=== PATIENT | male | born 1965 | race Caucasian/White ===

== ENCOUNTER 2021-10-05 20:50 | Observation (INO) | payer OTHER ==
[~2021-10-05] VITALS: Ht 190.5 cm; Wt 143.6 kg
--- NOTE | 2021-10-05 21:02 | ED Respiratory ---
General Stated Complaint: SOB Source: patient Exam Limitations: no limitations (SHELLEY MIRAMONTES APRN) History of Present Illness Date Seen by Provider: Oct 05, 2021 Time Seen by Provider: 20:49 Initial Comments This is a 55-year-old male with a history of hypertension, hyperlipidemia, and 2 coronary artery stents who presented to the ER via [facility] with complaints of shortness of air and chest pain. 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 States that he has been having increasing shortness of air over the past several months. Today he developed "heaviness" in his chest that was persistent with no alleviating or aggravating factors. States that 2 years ago he had chest pain and ended up requiring 2 coronary artery stents. The chest pain feels different today compared to his prior episode 2 years ago. He does take ASA 81mg daily and Prasugrel. He does not have a diagnosis of COPD, however he does admit to smokin g 1 to 2 packs of cigarettes per day for the last 45 years. He has follow up for an echocardiogram with his merchandise stocker next week and is scheduled for PFT next month. Denies fever, chills, cough, nausea, vomiting, abdominal pain. (SHELLEY MIRAMONTES APRN) Allergies and Home Medications Allergies Uncoded Allergies: PENICILLIN (Allergy, Unknown, 10/05/21) Patient Home Medication List Home Medication List Reviewed: Yes (SHELLEY MIRAMONTES APRN) Review of Systems Review of Systems Constitutional: no symptoms reported EENTM: no symptoms reported Respiratory: see HPI; No hemoptysis; orthopnea Cardiovascular: see HPI Gastrointestinal: no symptoms reported Genitourinary: no symptoms reported Musculoskeletal: no symptoms reported Skin: no symptoms reported Psychiatric/Neurological: No Symptoms Reported Hematologic/Lymphatic: No Symptoms Reported Immunological/Allergic: no symptoms reported (SHELLEY MIRAMONTES APRN) Physical Exam Vital Signs - First Documented 10/05/21 20:52 Temp 36.5 Pulse 89 Resp 26 B/P (MAP) 137/90 (106) Pulse Ox 94 O2 Delivery Nasal Cannula O2 Flow Rate 2.00 (ARPITA MEDINA MD) Capillary Refill : (SHELLEY MIRAMONTES APRN) Height: '" Weight: lbs. oz. kg; BMI Method: General Appearance: WD/WN, no apparent distress Eyes: Right Eye Normal Inspection, Right Eye PERRL, Right Eye EOMI HEENT: PERRL/EOMI, normal ENT inspection, pharynx normal Neck: full range of motion, supple, normal inspection Respiratory: no respiratory distress, decreased breath sounds; No accessory muscle use; other (tripod positioning ) Cardiovascular: regular rate, rhythm, no gallop Gastrointestinal: normal bowel sounds, non tender, soft Extremities: normal range of motion, non-tender, normal inspection, no pedal edema Neurologic/Psychiatric: no motor/sensory deficits, alert, normal mood/affect, oriented x 3 Skin: normal color, warm/dry (SHELLEY MIRAMONTES APRN) Progress/Results/Core Measures Suspected Sepsis SIRS Temperature: Pulse: Respiratory Rate: Laboratory Tests 10/05/21 21:09: White Blood Count 11.8H Blood Pressure / Mean: Laboratory Tests 10/05/21 21:09: Creatinine 0.75, INR Comment 1.0, Platelet Count 207, Total Bilirubin 0.9 (SHELLEY MIRAMONTES APRN) Results/Orders Lab Results Laboratory Tests Test 10/05/21 21:09 Range/Units White Blood Count 11.8 H 4.3-11.0 10^3/uL Red Blood Count 4.67 4.30-5.52 10^6/uL Hemoglobin 13.9 13.3-17.7 g/dL Hematocrit 42 40-54 % Mean Corpuscular Volume 90 80-99 fL Mean Corpuscular Hemoglobin 30 25-34 pg Mean Corpuscular Hemoglobin Concent 33 32-36 g/dL Red Cell Distribution Width 13.4 10.0-14.5 % Platelet Count 207 130-400 10^3/uL Mean Platelet Volume 9.7 9.0-12.2 fL Immature Granulocyte % (Auto) 0 % Neutrophils (%) (Auto) 80 H 42-75 % Lymphocytes (%) (Auto) 9 L 12-44 % Monocytes (%) (Auto) 7 0-12 % Eosinophils (%) (Auto) 4 0-10 % Basophils (%) (Auto) 0 0-10 % Neutrophils # (Auto) 9.4 H 1.8-7.8 10^3/uL Lymphocytes # (Auto) 1.1 1.0-4.0 10^3/uL Monocytes # (Auto) 0.8 0.0-1.0 10^3/uL Eosinophils # (Auto) 0.4 H 0.0-0.3 10^3/uL Basophils # (Auto) 0.0 0.0-0.1 10^3/uL Immature Granulocyte # (Auto) 0.0 0.0-0.1 10^3/uL Prothrombin Time 13.6 12.2-14.7 SEC INR Comment 1.0 0.8-1.4 Activated Partial Thromboplast Time 26 24-35 SEC D-Dimer 0.51 H 0.00-0.49 UG/ML Blood Gas Puncture Site L RAD Blood Gas Patient Temperature 36.5 Arterial Blood pH 7.39 7.37-7.43 Arterial Blood Partial Pressure CO2 43 35-45 MMHG Arterial Blood Partial Pressure O2 64 L 79-93 MMHG Arterial Blood HCO3 25 23-27 MMOL/L Arterial Blood Total CO2 26.6 21.0-31.0 MMOL/L Arterial Blood Oxygen Saturation 94 94-100 % Arterial Blood Base Excess 0.7 -2.5-2.5 MMOL/L Mario Alberto Test YES-POS Blood Gas Ventilator Setting NO Blood Gas Inspired Oxygen 4L Sodium Level 141 135-145 MMOL/L Potassium Level 3.6 3.6-5.0 MMOL/L Chloride Level 105 98-107 MMOL/L Carbon Dioxide Level 22 21-32 MMOL/L Anion Gap 14 5-14 MMOL/L Blood Urea Nitrogen 12 7-18 MG/DL Creatinine 0.75 0.60-1.30 MG/DL Estimat Glomerular Filtration Rate 107 BUN/Creatinine Ratio 16 Glucose Level 108 H 70-105 MG/DL Calcium Level 9.0 8.5-10.1 MG/DL Corrected Calcium 8.8 8.5-10.1 MG/DL Magnesium Level 1.9 1.6-2.4 MG/DL Total Bilirubin 0.9 0.1-1.0 MG/DL Aspartate Amino Transf (AST/SGOT) 20 5-34 U/L Alanine Aminotransferase (ALT/SGPT) 36 0-55 U/L Alkaline Phosphatase 121 40-136 U/L Myoglobin 90.1 10.0-92.0 NG/ML Troponin I < 0.028 <0.028 NG/ML B-Type Natriuretic Peptide 53.3 <100.0 PG/ML Total Protein 6.8 6.4-8.2 GM/DL Albumin 4.2 3.2-4.5 GM/DL Influenza Type A (RT-PCR) Not Detected Not Detecte Influenza Type B (RT-PCR) Not Detected Not Detecte SARS-CoV-2 RNA (RT-PCR) Not Detected Not Detecte (ARPITA MEDINA MD) Medications Given in ED Current Medications Medications Dose Ordered Sig/Justin Route Start Time Stop Time Status Last Admin Dose Admin Albuterol/ Ipratropium 3 ml STK-MED ONCE .ROUTE 10/05/21 22:05 10/05/21 22:07 DC 10/05/21 22:26 3 ML Nitroglycerin 1 BOTTLE ONCE ONCE SL 10/05/21 22:15 10/05/21 22:16 DC 10/05/21 22:09 0.4 MG (ARPITA MEDINA MD) Vital Signs/I&O 10/05/21 10/05/21 20:52 20:52 Temp 36.5 Pulse 89 Resp 26 B/P (MAP) 137/90 (106) Pulse Ox 94 94 O2 Delivery Nasal Cannula Nasal Cannula O2 Flow Rate 2.00 (ARPITA MEDINA MD) Vital Signs/I&O Capillary Refill : (SHELLEY MIRAMONTES APRN) Progress Note : Progress Note Upon arrival he is in no acute distress. He is on 2 L of oxygen via nasal cannula per EMS. His O2 sat is 91% at this time. He is sitting up on the side of the bed in a tripod position. After reviewed his history and completing a physical exam we will go ahead and obtain a cardiac work-up as well as evaluate for any respiratory etiologies such as infection/virus. He did receive 1 dose of [employer] COVID vaccine. We will go ahead and obtain flu and Covid swabs as well. Discussed ordering breathing treatment for him once Covid swab results, he is agreeable to try this. Labs reviewed and are relatively unremarkable. No elevation in cardiac markers, EKG right bundle reagan block which she states this is his baseline. Called respiratory therapy to give DuoNeb. While RT was in room with patient she presented asking reported that patient was having chest pain that was radiating up into his jaw and was requesting the provider. Upon entering the room patient is having 8/10, sharp, stabbing chest pain in the center of his chest. States it feels just like the last time he was having chest pain and required cardiac intervention with stents. Orders placed for nitro tab sublingual now And repeat EKG. Repeat EKG negative for any acute ST elevation or depression. After receiving nitro tablet his pain reduced to 1/10. During event his oxygen was around 96% on 3 L via nasal cannula. RT in room to give breathing treatment at this time and increase patient up to 15 L via oxygen mask. Highest oxygen saturation 87% on 15 L oxymask Instructed RT to go ahead and give DuoNeb at this time. After receiving DuoNeb treatment his oxygen was around 95% on 15 L via oxymask. Was able to titrate down to 8L via oxymask and maintain O2 sat of 94-95%. Reviewed case with Dr. Salmeron and he is agreeable to follow patient. Discussed case with Dr. Nicole will admit observation. (SHELLEY MIRAMONTES APRN) ECG Initial ECG Impression Date: Oct 05, 2021 Initial ECG Impression Time: 22:11 Initial ECG Rate: 82 Initial ECG Rhythm: Normal Sinus Initial ECG Impression: Normal Initial ECG Comparisson: No Previous ECG Available Comment RBBB (SHELLEY MIRAMONTES APRN) Diagnostic Imaging Diagonstic Imaging: Xray Plain Films/CT/US/NM/MRI: chest Comments [facility] [place], [place] NAME: ERIKA SEO [facility] REC#: [id number] PT STATUS: REG ER : 1965 PHYSICIAN: SHELLEY MIRAMONTES APRN ADMIT DATE: 10/05/21/ER Signed Date of Exam:10/05/21 CHEST 1 VIEW, AP/PA ONLY INDICATION: Shortness of breath. EXAMINATION: Single view of the chest. FINDINGS: Clear lungs, bilaterally. The heart is normal. There is no pneumothorax but osseous structures are normal. IMPRESSION: Negative chest. Dictated by: Dictated on workstation # [id number] Dict: 10/05/212199 Trans: 10/05/212222 [facility] [id number] Interpreted by: JAY HYMAN Electronically signed by: JAY HYMAN 10/05/212222 (SHELLEY MIRAMONTES APRN) Departure Communication (Admissions) Time/Spoke to Admitting Phy: 22:30 Dr. Nicole Time/Spoke to Consulting Phy: 22:35 Dr. Salmeron (SHELLEY MIRAMONTES APRN) Impression Primary Impression: COPD exacerbation Additional Impression: Chest pain Disposition: ADMITTED INPATIENT Condition: Stable Admissions Decision to Admit Reason: Admit from ER (General) Decision to Admit/Date: Oct 05, 2021 Time/Decision to Admit Time: 22:25 (SHELLEY MIRAMONTES APRN) PHYSICIAN ATTESTATION NOTE: I was present in the ER while ASSOCIATE PROFESSOR OF FORESTRY / PA saw the patient, but I was not involved in the care, exam, or management of the patient. (ARPITA MEDINA MD) SHELLEY MIRAMONTES APRN Oct 05, 2021 21:02 ARPITA MEDINA MD Oct 06, 2021 00:57
[2021-10-05 21:18] LABS: BASOPHILS % (AUTO) 0 % (0-10); EOSINOPHILS # (AUTO) 0.4 10^3/uL (0.0-0.3); EOSINOPHILS % (AUTO) 4 % (0-10); HEMATOCRIT 42 % (40-54); HEMOGLOBIN 13.9 g/dL (13.3-17.7); LYMPHOCYTES # (AUTO) 1.1 10^3/uL (1.0-4.0); LYMPHOCYTES % (AUTO) 9 % (12-44); MEAN CORPUSCULAR HEMOGLOBIN 30 pg (25-34); MEAN CORPUSCULAR HGB CONC 33 g/dL (32-36); MEAN CORPUSCULAR VOLUME 90 fL (80-99); MEAN PLATELET VOLUME 9.7 fL (9.0-12.2); MONOCYTES # (AUTO) 0.8 10^3/uL (0.0-1.0); MONOCYTES % (AUTO) 7 % (0-12); NEUTROPHILS # (AUTO) 9.4 10^3/uL (1.8-7.8); NEUTROPHILS % (AUTO) 80 % (42-75); PLATELET COUNT 207 10^3/uL (130-400); WHITE BLOOD COUNT 11.8 10^3/uL (4.3-11.0)
[2021-10-05 21:29] LABS: ALBUMIN 4.2 GM/DL (3.2-4.5); POTASSIUM 3.6 MMOL/L (3.6-5.0)
[2021-10-05 21:32] LABS: TOTAL PROTEIN 6.8 GM/DL (6.4-8.2)
[2021-10-05 21:33] LABS: BILIRUBIN,TOTAL 0.9 MG/DL (0.1-1.0)
[2021-10-05 21:35] LABS: CREATININE SERUM 0.75 MG/DL (0.60-1.30)
[2021-10-05 21:37] LABS: PROTHROMBIN TIME PATIENT 13.6 SEC (12.2-14.7)
[2021-10-05 21:38] LABS: MAGNESIUM 1.9 MG/DL (1.6-2.4)
--- NOTE | 2021-10-05 22:02 | Diagnostic Imaging Report ---
INDICATION: Shortness of breath. EXAMINATION: Single view of the chest. FINDINGS: Clear lungs, bilaterally. The heart is normal. There is no pneumothorax but osseous structures are normal. IMPRESSION: Negative chest. Dictated by: Dictated on workstation # [id number]
[2021-10-05] MEDS ORDERED: RT-ALBUTEROL/IPRATROPIUM 3 ML (DUONEB) VIAL ONE (22:05)
[2021-10-05] MEDS ORDERED: NITROGLYCERIN 0.4 MG SL TABS BTL 25'S SL ONE ×2 (22:09→22:15)
[2021-10-05 22:12] LABS: ABG BASE EXCESS 0.7 MMOL/L (-2.5-2.5); ABG OXYGEN SATURATION 94 % (94-100); ABG PCO2 43 MMHG (35-45); ABG PH 7.39 (7.37-7.43); ABG PO2 64 MMHG (79-93); ABG TCO2 26.6 MMOL/L (21.0-31.0); ALLENS TEST YES-POS; INSPIRED O2 4L; PATIENT TEMP 36.5; VENTILATOR NO
[2021-10-05] MEDS ORDERED: ENOXAPARIN 100 MG/1 ML (LOVENOX) SYR SC ONE (22:45)
[2021-10-05] MEDS ORDERED: methylPREDNISolone 125 MG (Solu-MEDROL) VIAL IVP ONE (23:00)
[2021-10-06 00:05] VITALS: BP 138/78
[2021-10-06] MEDS ORDERED: ONDANSETRON 4 MG/2 ML (SDV) Z0FRAN IV PRN (00:30)
[2021-10-06] MEDS ORDERED: RT-ALBUTEROL SULF 2.5 MG/3 ML PRE-MIX VIAL INH PRN (00:45)
[2021-10-06] MEDS ORDERED: ACETAMINOPHEN 325 MG TABLET PO PRN (00:45)
[2021-10-06] MEDS ORDERED: morphine INJ 4 MG/ML 1 ML (VIAL/SYRINGE) IV PRN (01:00)
[2021-10-06] MEDS ORDERED: NITROGLYCERIN 0.4 MG SL TABS BTL 25'S SL PRN (01:00)
[2021-10-06] MEDS ORDERED: RT-ALBUTEROL/IPRATROPIUM 3 ML (DUONEB) VIAL ONE (01:39)
[2021-10-06] MEDS ORDERED: RT-ALBUTEROL/IPRATROPIUM 3 ML (DUONEB) VIAL INH ONE (02:00)
[2021-10-06] MEDS ORDERED: RT-ALBUTEROL/IPRATROPIUM 3 ML (DUONEB) VIAL INH PRN (02:00)
[2021-10-06 04:19] VITALS: BP 137/90
[2021-10-06 04:22] VITALS: BP 122/57
[2021-10-06] MEDS ORDERED: methylPREDNISolone 40 MG/ML (Solu-MEDROL) VIAL IV SCH (06:00)
[2021-10-06 06:06] LABS: BASOPHILS % (AUTO) 0 % (0-10); EOSINOPHILS % (AUTO) 0 % (0-10); HEMATOCRIT 44 % (40-54); HEMOGLOBIN 14.2 g/dL (13.3-17.7); LYMPHOCYTES # (AUTO) 0.4 10^3/uL (1.0-4.0); LYMPHOCYTES % (AUTO) 4 % (12-44); MEAN CORPUSCULAR HEMOGLOBIN 30 pg (25-34); MEAN CORPUSCULAR HGB CONC 33 g/dL (32-36); MEAN CORPUSCULAR VOLUME 91 fL (80-99); MEAN PLATELET VOLUME 10.1 fL (9.0-12.2); MONOCYTES # (AUTO) 0.1 10^3/uL (0.0-1.0); MONOCYTES % (AUTO) 1 % (0-12); NEUTROPHILS # (AUTO) 9.5 10^3/uL (1.8-7.8); NEUTROPHILS % (AUTO) 95 % (42-75); PLATELET COUNT 199 10^3/uL (130-400)
[2021-10-06 06:26] LABS: POTASSIUM 3.7 MMOL/L (3.6-5.0)
[2021-10-06 06:28] LABS: CALCIUM 9.2 MG/DL (8.5-10.1)
[2021-10-06 06:32] LABS: CREATININE SERUM 0.77 MG/DL (0.60-1.30)
[2021-10-06 06:43] LABS: LYMPHOCYTES % (MANUAL) 5 %; NEUTROPHILS % (MANUAL) 95 %
[2021-10-06 06:44] LABS: RBC MORPH NORMAL
[2021-10-06] MEDS ORDERED: RT-ALBUTEROL/IPRATROPIUM 3 ML (DUONEB) VIAL INH SCH (07:00)
[2021-10-06] MEDS: RT-ALBUTEROL/IPRATROPIUM 3 ML (DUONEB) VIAL INH SCH ×2 (07:20→10:32)
[2021-10-06 07:31] VITALS: BP 137/83
[2021-10-06] MEDS ORDERED: ASPIRIN E.C. 81 MG (ECOTRIN) TAB PO SCH (09:00)
[2021-10-06] MEDS ORDERED: FAMOTIDINE 20 MG (PEPCID) TABLET PO SCH (09:00)
[2021-10-06] MEDS ORDERED: ENOXAPARIN 100 MG/1 ML (LOVENOX) SYR SC SCH (09:00)
[2021-10-06] MEDS ORDERED: ENOXAPARIN 150 MG/ML (LOVENOX) SYR SQ SCH (09:00)
[2021-10-06] MEDS ORDERED: ENOXAPARIN 300 MG/3 ML (LOVENOX) MULTI-DOSE VIAL SQ SCH (09:31)
[2021-10-06 10:04] LABS: TRIGLYCERIDES 64 MG/DL (<150); VLDL CHOLESTEROL 13 MG/DL (5-40)
[2021-10-06 10:09] LABS: CHOLESTEROL 89 MG/DL (< 200)
[2021-10-06 10:10] LABS: HDL CHOLESTEROL 25 MG/DL (40-60)
[2021-10-06] MEDS ORDERED: PRED10TA22 PO (10:51)
[2021-10-06 12:09] VITALS: BP 137/83
--- NOTE | 2021-10-07 20:40 | Discharge Summary ---
Discharge Summary Hospital Course Problems/Dx: (1) Chest pain Status: Acute (2) COPD exacerbation Status: Acute Hospital Course Date of Admission: Oct 05, 2021 at 22:39 Admission Diagnosis : Chest pain Family Physician/Provider: Laly Shaw Physician Date of Discharge: 10/07/21 Discharge Diagnosis: Chest pain, COPD exacerbation Hospital Course: Alexander Key is a 55 year old male with PMH HTN, HLD, CAD, obesity, who presented with chest pain and shortness of breath. He was started on steroids for COPD exacerbation. His troponins remained normal. His chest pain resolved. He is traveling through the area for work. He has an appointment scheduled next week with his order editor for a stress test. He was encouraged to follow up with his order editor and PCP as scheduled. He should return with worsening chest pain, shortness of breath, or if he feels like he is getting worse. He was discharged home in stable condition. Labs and Pending Lab Test: Home Meds Active Prednisone 10 Mg Tab.ds.pk 10 Mg PO DAILY Take 6 tabs(60mg)daily,decrease by 1 tab(10MG)daily. Assessment/Pt Instructions See instructions Discharge Planning: >30 minutes discharge planning Discharge Instructions Discharge Diet: Low Sodium Diet Activity as Tolerated: Yes Discharge Physical Examination Vital Signs Vital Signs Date Time Temp Pulse Resp B/P (MAP) Pulse Ox O2 Delivery O2 Flow Rate FiO2 10/06/21 12:09 37.5 99 24 137/83 91 Room Air 10/06/21 07:31 13.00 10/06/21 04:19 28 General Appearance: No Apparent Distress, Obese HEENT: PERRL/EOMI, Pharynx Normal Respiratory: Lungs Clear, No Respiratory Distress Cardiovascular: Regular Rate, Rhythm, No Murmur Gastrointestinal: Normal Bowel Sounds, Soft Extremity: Normal Inspection, No Pedal Edema Skin: Normal Color, Warm/Dry Neurologic/Psychiatric: Alert, Normal Mood/Affect Allergies: Uncoded Allergies: PENICILLIN (Allergy, Unknown, 10/05/21) Discharge Summary Date of Admission Oct 05, 2021 at 22:39 Date of Discharge Oct 06, 2021 at 12:11 Discharge Date: Oct 06, 2021 Discharge Time: 12:11 Admission Diagnosis Chest pain Discharge Diagnosis (1) Chest pain Status: Acute (2) COPD exacerbation Status: Acute NAPOLEON KIDD MD Oct 07, 2021 20:39
== END 2021-10-06 12:11 | disposition home or self-care (01) ==
LOC: ER 20:53 → 4TH 22:39
PROVIDERS: ADMIT Internal Medicine; ATTEND Internal Medicine
DX: J44.1 Chronic obstructive pulmonary disease with (acute) exacerbation (principal); F17.210 Nicotine dependence, cigarettes, uncomplicated; Z79.82 Long term (current) use of aspirin; Z79.899 Other long term (current) drug therapy
CPT/HCPCS: 71045; 80048; 80053; 80061; 82805; 83735; 83874; 83880; 84484 ×2; 85007; 85025; 85027; 85379; 85610; 85730; 87636; 93005 ×2; 93041; 94640 ×3; 94760; 96372; 96374; 99285; G0378; 36415